=== PATIENT | male | born 1960 | race Caucasian/White ===

== ENCOUNTER 2022-12-29 08:57 | Day surgery (SDC) | payer MEDICAID ==
[2022-12-23 11:29] LABS: Basophils # (auto) 0.1 10 ^3/uL (0-0.2); Eosinophils # (auto) 0.1 10 ^3/uL (0-0.8); Eosinophils % (auto) 1.1 % (0.0-7.0); Hemoglobin 15.2 g/dL (13.5-17.5); Monocytes # (auto) 0.4 10 ^3/uL (0-1.3); Nucleated Red Blood Cells % 0.1 %
[2022-12-23 11:30] LABS: Basophils % (auto) 0.8 % (0.0-2.0); Hematocrit 44.2 % (41.0-53.0); Lymphocytes % (auto) 30.8 % (10.0-50.0); Mean Corpuscular Hemoglobin 34.4 pg (28.0-32.0); Mean Corpuscular Hgb Conc. 34.3 g/dL (32.0-36.0); Mean Corpuscular Volume 100.2 fL (80.0-100.0); Monocytes % (auto) 5.5 % (0.0-12.0); Neutrophils # (auto) 4.1 10 ^3/uL (1.6-8.6); Neutrophils % (auto) 61.8 % (37.0-80.0); Red Blood Cells 4.42 10^6/uL (4.5-5.90); White Blood Cell 6.6 10^3/uL (4.4-10.8)
[2022-12-23 11:45] LABS: INR 0.94 (0.9-1.15)
[2022-12-23 12:11] LABS: Urine Bacteria NONE SEEN /hpf (None Seen); Urine Blood Negative /uL (Negative); Urine Specific Gravity 1.014 (1.001-1.035); Urine WBC 1 /hpf (0 - 3)
[2022-12-23 12:15] LABS: Albumin 4.1 g/dL (3.4-5.0); Calcium 9.2 mg/dL (8.5-10.1); Potassium 4.2 mmol/L (3.5-5.1)
[2022-12-23 12:17] LABS: BUN/Creatinine Ratio 18.5 (10.0-20.0)
[2022-12-23 12:19] LABS: Bilirubin, Total 0.3 mg/dL (0.2-1.0); Total Protein 7.9 g/dL (6.4-8.2)
[~2022-12-29] VITALS: Ht 177.8 cm; Wt 54.4 kg
[~2022-12-29 08:57] MED LIST: ATOR10TA PO; CHOL20004 PO; DULO20CA PO; IBUP-1453 PO; ZOLP10TA PO
[2022-12-29] MEDS ORDERED: MIDAZOLAM HCL 2MG/2ML 2ml VIAL (1mg/ml) ONE (11:10)
[2022-12-29] MEDS ORDERED: fentaNYL CITRATE 100 MCG/2 ML VL ONE (11:10)
[2022-12-29] MEDS ORDERED: PROPOFOL 10 MG/ML 20 ML IV ONE (11:12)
[2022-12-29] MEDS ORDERED: ONDANSETRON HCL 4 MG/2 ML VIAL IV PRN (11:45)
[2022-12-29 12:15] VITALS: BP 149/85
== END 2022-12-29 12:20 | disposition home or self-care (01) ==
LOC: GI 08:57
PROVIDERS: ATTEND Internal Medicine Gastroenterology
DX: Z12.11 Encounter for screening for malignant neoplasm of colon (principal); K57.30 Diverticulosis of large intestine without perforation or abscess without bleeding; Z80.0 Family history of malignant neoplasm of digestive organs; K63.5 Polyp of colon
CPT/HCPCS: 36415; 45380; 80053; 81001; 85025; 85610; 85730; J2250; J2704; J3010; J7030